=== PATIENT | male | born 1960 | race Caucasian/White ===

== ENCOUNTER 2017-05-17 17:10 | Inpatient (IN) | payer OTHER ==
[~2017-05-17] VITALS: Ht 175.3 cm; Wt 93.0 kg
[2017-05-17 17:46] LABS: ABSOLUTE BASOPHIL COUNT 0 /CUMM (0.0-0.2); ABSOLUTE EOSINOPHIL COUNT 0 /CUMM (0.0-0.7); ABSOLUTE GRANULOCYTE CT 4.1 /CUMM (1.4-6.5); ABSOLUTE LYMPH COUNT 2.5 /CUMM (1.2-3.4); ABSOLUTE MONOCYTE COUNT 0.4 /CUMM (0.10-0.60); BASOPHIL % 0.4 % (0.0-2.0); EOSINOPHIL % 0.5 % (0-5); GRANULOCYTE % 58.4 % (42.2-75.2); HEMATOCRIT 45.4 % (42-52); MEAN CORPUSCULAR HGB CONC 34.4 G/DL (33.0-37.0); MEAN CORPUSCULAR VOLUME 92.8 FL (80.0-94.0); PLATELET COUNT 203 /CUMM (130-400); RBC DISTRIBUTION WIDTH 14.1 % (11.5-14.5); RED BLOOD CELL CT 4.89 /CUMM (4.70-6.10)
--- NOTE | 2017-05-17 21:52 | ED PSYCHIATRIC COMPLAINT ---
History of Present Illness General Chief Complaint: ETOH/Drug Related Complaint Stated Complaint: REQUESTING HIGHWATCH Source: patient Exam Limitations: no limitations Vital Signs & Intake/Output Vital Signs & Intake/Output Vital Signs Date Time Temp Pulse Resp B/P B/P Pulse O2 O2 Flow FiO2 Mean Ox Delivery Rate 05/19 0936 102 132/90 05/19 0800 102 18 132/90 05/19 0651 146/88 05/19 0641 98.4 96 20 150/100 97 Room Air 05/18 2213 98.1 114 18 152/80 98 Room Air 05/18 1999 132/78 05/18 1999 132/78 05/18 1711 97.9 670 54 0855/10 05/18 1711 97.9 109 20 160/100 96 Room Air 05/18 1610 98.0 104 16 149/90 05/18 1610 98.0 104 16 140/90 98 Room Air 05/18 1311 98.1 120 18 138/98 98 Room Air ED Intake and Output 05/19 0000 05/18 1200 Intake Total Output Total Balance Patient 205 lb Weight Weight Reported by Patient Measurement Method Allergies Coded Allergies: Penicillins (HIVES 05/17/17) Reconcile Medications Citalopram Hydrobromide (Citalopram HBr) 20 MG TABLET 1 TAB PO DAILY DEPRESSION (Reported) Lisinopril 40 MG TABLET 1 TAB PO DAILY HIGH BLOOD PRESSURE (Reported) Triage Note: PT HERE FOR HIGHWATCH CLEARANCE STATES HIS BAL WAS TOO HIGH FOR HIM TO STAY THERE. PT STATES HIS LAST DRINK WAS LAST EVENING. PT ADMITS TO DRINKING 1 PINT OF VODKA DAILY. PT DENIES DRUG USE. PT DENIES SI/HI PT Triage Nurses Notes Reviewed? yes HPI: Patient presents for evaluation of alcohol dependence. Patient states that he has been drinking a pint of vodka daily for at least 10 years, off and on. Patient denies history of seizures. He intends to go into alcohol rehabilitation at [facility]. He reported there today but was too intoxicated. He has no specific complaint at this time. (Klarissa RAGLAND,Augie Weeks) Past History Travel History Traveled to [place] past 21 day No Medical History Any Pertinent Medical History? see below for history Cardiovascular: hypertension Psychiatric: alcohol dependence, anxiety Surgical History Surgical History: non-contributory Psychosocial History What is your primary language Sammarinese Tobacco Use: Quit >30 days ago ETOH Use: alcoholic Illicit Drug Use: denies illicit drug use, marijuana (medicinal) Family History Hx Contributory? No (Klarissa RAGLAND,Augie Weeks) Review of Systems Review of Systems Constitutional: Reports: no symptoms. EENTM: Reports: no symptoms. Respiratory: Reports: no symptoms. Cardiovascular: Reports: no symptoms. GI: Reports: no symptoms. Genitourinary: Reports: no symptoms. Musculoskeletal: Reports: no symptoms. Skin: Reports: no symptoms. Neurological/Psychological: Reports: no symptoms. Hematologic/Endocrine: Reports: no symptoms. Immunologic/Allergic: Reports: no symptoms. All Other Systems: Reviewed and Negative (Klarissa RAGLAND,Augie Weeks) Physical Exam Physical Exam General Appearance: see below Neurological/Psychiatric: see below Comments: General: Alert, calm, cooperative Head: Normocephalic, atraumatic Eyes: Normal inspection, no nystagmus, EOMI Ears: Normal inspection Nose: Normal inspection Throat: Moist mucosa Neck: Supple, no goiter Heart: Regular rate and rhythm, no murmurs rubs or gallops Lungs: Clear to auscultation bilaterally with good air entry Abdomen: Soft nontender nondistended, normal bowel sounds Chest: Nontender Extremities: Normal range of motion grossly, mild tremors present, no cyanosis clubbing or edema of the upper extremities Neurologic: cranial nerves II through XII grossly intact, speech clear, gait normal Psychiatric: No apparent delusions or hallucinations, no pressured speech or thought blocking SAD PERSONS Done? patient not suicidal (Klarissa RAGLAND,Augie Weeks) Progress Differential Diagnosis: alcohol withdrawal, alcohol intoxication, electrolyte abnormality, dehydration, psychiatric disorder Plan of Care: Orders Procedure Date/time Status BASIC ELECTROLYTES PLUS BUN&CR 05/19 0500 Complete MISSING MEDICATION FORM 05/19 UNK Active Heart Healthy Diet 05/18 D Active Vital Signs 05/18 175 Active Teach/Educate 05/18 175 Active Pain Treatment and Response 05/18 175 Active Nutritional Intake, Monitor 05/18 175 Active Isolation 05/18 1759 Active Intake & Output 05/18 175 Active Patient Care Conference 05/18 175 Active Activity/Ambulation 05/18 175 Active Pathway - chart 05/18 1357 Active House Staff 05/18 1357 Active Code Status 05/18 1357 Active LACTIC ACID 05/18 1348 Complete Add-on Test (ER Only) 05/18 1333 Active Admit to inpatient 05/18 1332 Active Patient Data 05/18 1327 Active ED Holding Orders 05/18 1309 Active Vital Signs 05/18 1309 Active Code Status 05/18 1309 Complete VTE Mechanical Prophylaxis 05/18 UNK Active Intake & Output 05/17 203 Active THYROID STIMULATING HORMONE 05/17 1740 Complete Current Medications Sig/Chung Start time Last Medication Dose Stop Time Status Admin Lorazepam 1 MG Q12H 05/20 0000 CAN (Ativan) 05/20 1201 Lorazepam 1.5 MG BID 05/19 2200 AC (Ativan) Citalopram 20 MG DAILY 05/19 1000 AC 05/19 Hydrobromide 0936 (Celexa) Enoxaparin Sodium 40 MG DAILY 05/19 1000 AC 05/19 (Lovenox) 0936 Lisinopril 40 MG DAILY 05/19 1000 AC 05/19 (Prinivil) 0936 Lorazepam 0 Q1P PRN 05/18 1700 AC (Ativan) Folic Acid 1 MG DAILY 05/18 1000 AC 05/19 (Folic Acid) 05/20 1001 0936 Multivitamins 1 TAB DAILY 05/18 1000 AC 05/19 (Theragran Vitamins) 0936 Thiamine HCl 100 MG DAILY 05/18 1000 AC 05/19 (Vitamin B1) 05/20 1001 0935 Laboratory Tests 05/19/17 0435: Anion Gap 11, Estimated GFR > 60, BUN/Creatinine Ratio 25.0 05/18/17 1435: Lactic Acid 1.1 05/18/2017 7:17:40 AM Patient presenting with alcohol withdrawal. May required [place] to the hospital versus disposition to high watch patient medically stable. 10:05 AM MUCH IMPROVED AT THIS TIME. HR 109. NO TREMORS. WILL CONTINUE TO MONITOR, WILL LIKLELY GO TO HIGH WATCH. WILL HOLD ATIVAN AT THIS TIME. 12:20 PM PATIENT FEELS WELL, NO CONFUSION. NO ATIVAN SINCE 6:40 AM. STABLE FOR HIGHWATCH. (Marilia RAGLAND,Ngoc) Comments: 05/17/2017 11:27:23 PM patient signed out to Dr. Pradhan at shift waste[facility]materials exchange specialist. (Klarissa RAGLAND,Augie Weeks) Initial ED EKG: SINUS TACHYCARDIA @ 109 BPM (Marilia RAGLAND,Ngoc) Departure Departure Condition: Stable Clinical Impression Primary Impression: Alcohol dependence Qualifiers: Substance use status: uncomplicated Qualified Code: F10.20 - Alcohol dependence, uncomplicated Referrals: Patient Has No Primary Care Dr (PCP/Family) Departure Forms: Customer Survey General Discharge Information (Klarissa RAGLAND,Augie Weeks) Departure Comments 05/18/16, 7am. pt signed out to dr. mendez (Carolynn RAGLAND,Charli Pleitez) Departure Time of Disposition: 1249 Disposition: STILL A PATIENT Admission Note Spoke With: Glenny RAGLAND,Talia Documentation of Exam: Documentation of any treatments & extenuating circumstances including Concerns Regarding Discharge (functional status, medication knowledge or non-compliance, living conditions, etc.) that warrant an admission rather than observation: [ CIWA MONITORING, ATIVAN TAPER, BP MANAGEMENT, CRISIS CONSULTATION, PLACEMENT FOR ALCOHOL REHAB] (Marilia RAGLAND,[facility])
[2017-05-17] MEDS ORDERED: LISINOPRIL40 M1 PO (22:32)
[2017-05-17] MEDS ORDERED: CITALOPRAM HBR20 MG PO (22:32)
[2017-05-18 06:27] VITALS: BP 174/116
--- NOTE | 2017-05-18 13:37 | History & Physical ---
[facility] 05[facility]18[facility] 1336: General Information and HPI MD Statement: I have seen and personally examined VAHID VILLEGAS and documented this H&P. The patient is a 56 year old M who presented with a patient stated chief complaint of [alcohol withdrawal]. Source of Information: patient Exam Limitations: no limitations History of Present Illness: 56-year-old male Presented from [facility] for alcohol withdrawal evaluation. The patient reported drinking almost daily for the past 10 years, his last drink was yesterday. On average he drinks half pints of vodka every day for the past 2 months. The patient reported that he try to detox at home multiple times in the past without any complication. The patient denies any previous alcohol detox related admissions, seizure, hallucinations, or tremors. Patient denies smoking however he reports medical marijuana use intermittently for joints pain control. Allergies/Medications Allergies: Coded Allergies: Penicillins (HIVES 05/17/17) Home Med list Citalopram Hydrobromide (Citalopram HBr) 20 MG TABLET 1 TAB PO DAILY DEPRESSION (Reported) Lisinopril 40 MG TABLET 1 TAB PO DAILY HIGH BLOOD PRESSURE (Reported) Past History Travel History Traveled to [place] past 21 day No Medical History Neurological: ANXIETY Cardiovascular: hypertension Psychiatric: alcohol dependence, anxiety Surgical History Surgical History: non-contributory Past Family/Social History Psychosocial History ETOH Use: alcoholic Illicit Drug Use: denies illicit drug use, marijuana (medicinal) Review of Systems Review of Systems Constitutional: Reports: see HPI. Exam & Diagnostic Data Last 24 Hrs of Vital Signs/I&O Vital Signs Date Time Temp Pulse Resp B/P B/P Pulse O2 O2 Flow FiO2 Mean Ox Delivery Rate 05/18 1610 98.0 104 16 149/90 05/18 1610 98.0 104 16 140/90 98 Room Air 05/18 1311 98.1 120 18 138/98 98 Room Air 05/18 1122 98.0 119 18 131/78 98 Room Air 05/18 0920 113 18 131/79 98 Room Air 05/18 0835 98.9 133 18 157/104 98 Room Air 05/18 0717 130 20 141/102 98 Room Air 05/18 0642 99.9 125 24 174/116 05/18 0642 99.9 125 24 174/116 05/18 0627 99.9 125 24 174/116 05/18 0626 99.9 125 20 174/116 97 Room Air 05/18 0332 97.0 98 20 142/65 99 Room Air 05/18 0116 97.4 100 20 158/90 99 Room Air 05/17 2354 164/82 05/17 2131 97.7 109 16 166/96 97 05/17 1951 97.2 131 16 131/73 96 Room Air 05/17 1734 97.2 113 16 122/81 96 Room Air Intake & Output 05/18 1600 05/18 0800 05/18 0000 Intake Total 300 Output Total Balance 300 Intake, Oral 300 Patient 94.801 kg Weight Weight Reported by Patient Measurement Method Physical Exam General Appearance Alert, Oriented X3, Cooperative, No Acute Distress Skin No Rashes HEENT Atraumatic, PERRLA, EOMI, Mucous Membr. moist/pink Neck No JVD Cardiovascular Regular Rate, Normal S1, Normal S2, No Murmurs, TACHYCARDIA Lungs Clear to Auscultation, Normal Air Movement Abdomen Soft, No Tenderness Neurological Normal Gait, Normal Speech, Strength at 5/5 X4 Ext, Sensation Intact, Cranial Nerves 3-12 NL, Reflexes 2+ Extremities No Clubbing, No Cyanosis, No Edema Last 24 Hrs of Labs/Bonilla: Laboratory Tests 05/18/17 1435: Lactic Acid 1.1 05/17/17 2019: Urine Opiates Screen < 100.00, Methadone Screen 67, Barbiturate Screen < 60, Ur Phencyclidine Scrn < 6.00, Amphetamines Screen < 100, U Benzodiazepines Scrn < 85, Urine Cocaine Screen < 50, Urine Cannabis Screen 79.70 H 05/17/17 1740: Anion Gap 22 H, Estimated GFR > 60, BUN/Creatinine Ratio 28.8 H, Glucose 94, Calcium 9.4, Total Bilirubin 1.5 H, AST 89 H, ALT 66, Alkaline Phosphatase 84, Troponin I < 0.01, Total Protein 7.9, Albumin 4.7, Globulin 3.2, Albumin/ Globulin Ratio 1.5, TSH 1.480, CBC w Diff NO MAN DIFF REQ, RBC 4.89, MCV 92.8, MCH 32.0 H, MCHC 34.4, RDW 14.1, MPV 8.0, Gran % 58.4, Lymphocytes % 35.5, Monocytes % 5.2, Eosinophils % 0.5, Basophils % 0.4, Absolute Granulocytes 4.1, Absolute Lymphocytes 2.5, Absolute Monocytes 0.4, Absolute Eosinophils 0, Absolute Basophils 0, Serum Alcohol 183.0 Assessment/Plan Assessment: 56-year-old male who presented for alcohol detox, while in the ED the patient was found to be anxious with a heart rate of 120s and BP 170s/110S. the patient has no history of alcohol withdrawal-related complication. Patient has a past medical history of hypertension and an anxiety for which he is taking lisinopril and Escitalopram. #Alcohol detox * Admitted to general medicine floor * CIWA scoring system * Ativan IV as per CIWA protocol. * Oral folic acid and thiamine #Hypertension/and anxiety * Continue home medication including lisinopril and Escitalopram. -Regular diet -DVT PPx: Lovenox -Full code As Ranked By This Provider Problem List: 1. Alcohol dependence Qualifiers Substance use status: uncomplicated Qualified Code: F10.20 - Alcohol dependence , uncomplicated Core Measures/Misc (12/19) Acute Coronary Syndrome ACS Diagnosis: No Congestive Heart Failure Congestive Heart Failure Diagnosis No Cerebrovascular Accident CVA/TIA Diagnosis: No VTE (View Protocol) VTE Risk Factors Age>40 No Mechanical VTE Prophylaxis d/t N/A MechProphylax Ordered No VTE Pharm Prophylaxis d/t NA PharmProphylax ordered Sepsis (View protocol) Sepsis Present: No Jreel Romero MD 05/19/17 4739: Attending MD Review Statement Attending Statement Attending MD Statement: examined this patient, discuss w/resident/PA/BUSINESS EDUCATION TEACHER, agreed w/resident/PA/BUSINESS EDUCATION TEACHER, reviewed EMR data (avail)
[2017-05-18 16:10] VITALS: BP 149/90
[2017-05-18 17:11] VITALS: BP 160/100; BP 1660/10
[2017-05-18 20:00] VITALS: BP 132/78
[2017-05-18 22:13] VITALS: BP 152/80
[2017-05-19] VITALS (7 sets, daily range): BP systolic 132–152; BP diastolic 88–102
--- NOTE | 2017-05-19 08:27 | PN- Housestaff ---
See Addendum Subjective Follow-up For: EtOH withdrawal Subjective: no complaints no significant withdrawal symptoms or anxiety feeling well, wants to go to inpatient treatment, blood pressure has been elevated on standing dose ativan Review of Systems Constitutional: Reports: see HPI. Objective Last 24 Hrs of Vital Signs/I&O Vital Signs Date Time Temp Pulse Resp B/P B/P Pulse O2 O2 Flow FiO2 Mean Ox Delivery Rate 05/19 0936 102 132/90 05/19 0800 102 18 132/90 05/19 0651 146/88 05/19 0641 98.4 96 20 150/100 97 Room Air 05/18 2213 98.1 114 18 152/80 98 Room Air 05/18 1999 132/78 05/18 1999 132/78 05/18 1711 97.9 546 10 9451/10 05/18 1711 97.9 109 20 160/100 96 Room Air 05/18 1610 98.0 104 16 149/90 05/18 1610 98.0 104 16 140/90 98 Room Air 05/18 1311 98.1 120 18 138/98 98 Room Air 05/18 1122 98.0 119 18 131/78 98 Room Air Intake & Output 05/19 1600 05/19 0800 05/19 0000 Intake Total Output Total Balance Patient 92.986 kg Weight Weight Reported by Patient Measurement Method Physical Exam General Appearance: Alert, Oriented X3, Cooperative, No Acute Distress Cardiovascular: Regular Rate, Normal S1, Normal S2, No Murmurs Lungs: Clear to Auscultation, Normal Air Movement Abdomen: Normal Bowel Sounds, Soft, No Tenderness, No Masses Extremities: No Clubbing, No Cyanosis, No Edema, Normal Pulses Current Medications: Current Medications Sig/Chung Start time Last Medication Dose Route Stop Time Status Admin Acetaminophen 0 .STK-MED ONE 05/18 1429 DC PO Acetaminophen 975 MG ONCE ONE 05/18 1315 DC 05/18 PO 05/18 1316 1426 Citalopram 20 MG DAILY 05/19 1000 AC 05/19 Hydrobromide PO 0936 Enoxaparin Sodium 40 MG DAILY 05/19 1000 AC 05/19 SC 0936 Folic Acid 1 MG DAILY 05/18 1000 AC 05/19 PO 05/20 1001 0936 Gabapentin 300 MG Q8 05/18 0600 DC 05/18 PO 1304 Lisinopril 40 MG DAILY 05/19 1000 AC 05/19 PO 0936 Lorazepam 1 MG Q12H 05/20 0000 CAN PO 05/20 1201 Lorazepam 1.5 MG BID 05/19 2200 AC PO Lorazepam 1.5 MG Q6 05/19 0600 DC 05/19 PO 05/19 1801 0513 Lorazepam 0 Q1P PRN 05/18 1700 AC IV Lorazepam 2 MG Q6 05/18 0845 DC 05/18 PO 05/19 0001 2312 Lorazepam 2 MG Q2P PRN 05/18 0845 DC IV Lorazepam 1 MG Q2P PRN 05/18 0845 DC IV Multivitamins 1 TAB DAILY 05/18 1000 AC 05/19 PO 0936 Thiamine HCl 100 MG DAILY 05/18 1000 AC 05/19 PO 05/20 1001 0935 Last 24 Hrs of Lab/Bonilla Results Last 24 Hrs of Labs/Mics: Laboratory Tests 05/19/17 0435: Anion Gap 11, Estimated GFR > 60, BUN/Creatinine Ratio 25.0 05/18/17 1435: Lactic Acid 1.1 Assessment/Plan Assessment: 56-year-old male who presented for alcohol detox, while in the ED the patient was found to be anxious with a heart rate of 120s and BP 170s/110S. the patient has no history of alcohol withdrawal-related complication. Patient has a past medical history of hypertension and an anxiety for which he is taking lisinopril and Escitalopram. Alcohol detox: * CIWA scoring 0-11 past 24 hours Decreased standing Ativan from 1.5mg Q6H to BID, 1mg tmrw morning then stop * Ativan IV as per CIWA protocol. * Oral folic acid and thiamine Hypertension: Likely elevated from acute withdrawal Continue lisinopril and monitor blood pressure Anxiety: * Continue Escitalopram. Regular diet DVT ppx: Lovenox 40mg subcutaneous daily Full code Problem List: 1. Alcohol dependence Pain Ratin Pain Location: n/a Pain Goal: Pain 4 or less Pain Plan: prn Tomorrow's Labs & Rationales: none
[2017-05-20 01:48] VITALS: BP 138/104
[2017-05-20 02:00] VITALS: BP 138/104
[2017-05-20 06:47] VITALS: BP 130/96
--- NOTE | 2017-05-20 08:47 | PN- Housestaff ---
Yane RAGLAND,Joe 05/20/17 0847: Subjective Follow-up For: etoh detox anxiety htn tachycardia Subjective: patient is not complaining of significant withdrawal symptoms [facility] on ativan taper Review of Systems Constitutional: Reports: see HPI. Objective Last 24 Hrs of Vital Signs/I&O Vital Signs Date Time Temp Pulse Resp B/P B/P Pulse O2 O2 Flow FiO2 Mean Ox Delivery Rate 05/20 1020 114 142/90 05/20 1000 97.8 102 20 140/100 96 Room Air 05/20 0647 98.0 110 22 130/96 97 Room Air 05/20 0200 102 138/104 05/20 0148 97.6 102 22 138/104 97 Room Air 05/19 2205 98.0 98 20 142/102 98 Room Air 05/19 1600 104 140/92 05/19 1600 105 18 140/92 05/19 1542 118 142/98 05/19 1413 97.8 108 20 152/100 97 Room Air Intake & Output 05/20 1600 05/20 0800 05/20 0000 Intake Total 480 250 Output Total Balance 480 250 Intake, IV 10 Intake, Oral 480 240 Number 0 0 Bowel Movements Physical Exam General Appearance: Alert, Oriented X3, Cooperative, No Acute Distress Cardiovascular: Regular Rate, Normal S1, Normal S2, No Murmurs Lungs: Clear to Auscultation, Normal Air Movement Abdomen: Normal Bowel Sounds, Soft, No Tenderness, No Masses Extremities: No Clubbing, No Cyanosis, No Edema, Normal Pulses Current Medications: Current Medications Sig/Chung Start time Last Medication Dose Route Stop Time Status Admin Citalopram 20 MG DAILY 05/19 1000 AC 05/20 Hydrobromide PO 1020 Enoxaparin Sodium 40 MG DAILY 05/19 1000 AC 05/20 SC 1020 Folic Acid 1 MG DAILY 05/18 1000 DC 05/20 PO 05/20 1001 1020 Lisinopril 40 MG DAILY 05/19 1000 AC 05/20 PO 1020 Lorazepam 1 MG BID 05/20 1000 AC 05/20 PO 1020 Lorazepam 1.5 MG BID 05/19 2200 DC PO Lorazepam 1 MG ONCE ONE 05/19 1600 DC IV 05/19 1601 Lorazepam 1.5 MG Q8 05/19 1550 DC 05/20 PO 0559 Lorazepam 1 MG ONCE ONE 05/19 1430 DC 05/19 IV 05/19 1431 1447 Lorazepam 0 Q1P PRN 05/18 1700 AC IV Magnesium Oxide 400 MG ONE ONE 05/19 1914 DC 05/19 PO 05/19 Multivitamins 1 TAB DAILY 05/18 1000 AC 05/19 PO 0936 Potassium Chloride 40 MEQ ONCE ONE 05/19 1914 DC 05/19 PO 05/19 Thiamine HCl 100 MG DAILY 05/18 1000 DC 05/19 PO 05/20 1001 0935 Last 24 Hrs of Lab/Bonilla Results Last 24 Hrs of Labs/Mics: Laboratory Tests 05/20/17 0633: Anion Gap 11, Estimated GFR > 60, BUN/Creatinine Ratio 24.3, Phosphorus 2.5, Magnesium 2.0 Assessment/Plan Assessment: 56 year old male with PMH significant for anxiety and HTN presented with presented for alcohol detox with tachycardia and hypertension on arrival. Alcohol detox: Remains mildly tachycardic and hypertensive CIWA score 0 Decreased standing Ativan from 1.5mg to 1mg BID Ativan IV as per CIWA protocol. Oral folic acid and thiamine Hypertension: Likely elevated from acute withdrawal Continue lisinopril, elevated diastolic pressures Consider adding metoprolol for tachycardia/HTN if persisted abnormal vital signs as EtOH withdrawal wanes Anxiety: Continue Escitalopram Regular diet DVT ppx: Lovenox 40mg subcutaneous daily Full code Problem List: 1. Alcohol dependence Pain Ratin Pain Location: n/a Pain Goal: Pain 4 or less Pain Plan: prn Tomorrow's Labs & Rationales: none Jerel Romero MD 05/20/17 1124: Attending MD Review Statement Attending Statement Attending MD Statement: examined this patient, discuss w/resident/PA/HYDROELECTRIC PLANT OPERATOR, agreed w/resident/PA/HYDROELECTRIC PLANT OPERATOR, reviewed EMR data (avail) Attending Assessment/Plan: Still hypertensive, tachycardic, showing signs of withdrawal, will continue Ativan taper until tomorrow.
[2017-05-20 10:00] VITALS: BP 140/100
[2017-05-20 15:18] VITALS: BP 130/90
--- NOTE | 2017-05-20 17:07 | Patient Discharge Instructions ---
Discharge Instructions General Discharge Information You were seen/treated for: alcohol withdrawal Acute Coronary Syndrome Inclusion Criteria At DC or during hospital stay patient has or had the following: ACS DIAGNOSIS No Discharge Core Measures Meds if any: Prescribed or Continued at Discharge Meds if any: NOT Prescribed or Continued at Discharge Congestive Heart Failure Inclusion Criteria At DC or during hospital stay patient has or had the following: CHF DIAGNOSIS No Discharge Core Measures Meds if any: Prescribed or Continued at Discharge Meds if any: NOT Prescribed or Continued at Discharge Cerebrovascular accident Inclusion Criteria At DC or during hospital stay patient has or had the following: CVA/TIA Diagnosis No Discharge Core Measures Meds if any: Prescribed or Continued at Discharge Meds if any: NOT Prescribed or Continued at Discharge Venous thromboembolism Inclusion Criteria VTE Diagnosis No VTE Type NONE VTE Confirmed by (Test) NONE Discharge Core Measures - Per Current guidelines, there needs to be overlap - treatment for the first 5 days of Warfarin therapy. - If discharged on Warfarin prior to 5 days of - overlap therapy, the patient will need to be - assessed for post discharge needs including - *Post discharge parental anticoagulation - *Warfarin and/or parental anticoagulation education - *Follow up date to check INR post discharge At least 5 days overlap therapy as Inpatient No Meds if any: Prescribed or Continued at Discharge Note: Overlap Therapy is Warfarin and Anticoagulant Meds if any: NOT Prescribed or Continued at Discharge
[2017-05-20 21:49] VITALS: BP 144/84
[2017-05-21 06:40] VITALS: BP 138/68
--- NOTE | 2017-05-21 09:28 | PN- Housestaff ---
[place],Junior 05/21/17 0927: Subjective Follow-up For: Alcohol detox Subjective: Patient is seen and examined at bedside. He does not endorse any acute complaints including tremors, hallucination, increased anxiety, seizure-like activity. CIWA scores have been zero for the past few days. No acute overnight event reported by nursing staff. Review of Systems Constitutional: Reports: no symptoms. Objective Last 24 Hrs of Vital Signs/I&O Vital Signs Date Time Temp Pulse Resp B/P B/P Pulse O2 O2 Flow FiO2 Mean Ox Delivery Rate 05/21 1046 106 142/98 05/21 0640 97.6 75 18 138/68 96 Room Air 05/20 2149 97.4 82 20 144/84 96 Room Air 05/20 1518 97.7 97 20 130/90 97 Room Air Intake & Output 05/21 1600 05/21 0800 05/21 0000 Intake Total 450 650 Output Total Balance 450 650 Intake, Oral 450 650 Physical Exam General Appearance: Alert, Oriented X3, Cooperative Cardiovascular: Regular Rate, Normal S1, Normal S2 Lungs: Clear to Auscultation, Normal Air Movement Abdomen: Normal Bowel Sounds, Soft, No Tenderness Neurological: Normal Gait, Normal Speech, Strength at 5/5 X4 Ext, Sensation Intact Extremities: No Clubbing, No Cyanosis, No Edema, Normal Pulses Current Medications: Current Medications Sig/Chung Start time Last Medication Dose Route Stop Time Status Admin Citalopram 20 MG DAILY 05/19 1000 DCD 05/21 Hydrobromide PO 1042 Enoxaparin Sodium 40 MG DAILY 05/19 1000 DCD 05/21 SC 1046 Lisinopril 40 MG DAILY 05/19 1000 DCD 05/21 PO 1046 Lorazepam 1 MG BID 05/20 1000 DCD 05/21 PO 1041 Lorazepam 0 Q1P PRN 05/18 1700 DCD IV Metoprolol Tartrate 25 MG ONCE ONE 05/21 1415 DC 05/21 PO 05/21 1416 1550 Multivitamins 1 TAB DAILY 05/18 1000 DCD 05/21 PO 1122 Last 24 Hrs of Lab/[place] Results Last 24 Hrs of Labs/Mics: Laboratory Tests 05/21/17 0613: Anion Gap 13, Estimated GFR > 60, BUN/Creatinine Ratio 21.4 Assessment/Plan Assessment: 56 year old male with PMH significant for anxiety and HTN presented with presented for alcohol detox with tachycardia and hypertension on arrival. Alcohol detox: VSS stable. CIWA score 0 for the past 3 days continue Tivan taper, will give 1mg once today then stop. Ativan IV as per CIAK protocol. Oral folic acid and thiamine Hypertension: Improving. Was probably exacerbated by withdrawal. Continue lisinopril, elevated diastolic pressures O/n HR less than 100, tachycardia seem to have resolved. Was probably exacerbated by withdrawal. Will consider adding metroprol low dose. Anxiety: Continue Escitalopram Disposition: Medically stable, arraingement for [facility] re[facility] have been made. Will cordinate with case management. Problem List: 1. Alcohol dependence Pain Ratin Pain Location: none Pain Goal: Remain pain free Pain Plan: per pathway Tomorrow's Labs & Rationales: nine-discharge Jerel Romero MD 05/21/17 1629: Attending MD Review Statement Attending Statement Attending MD Statement: examined this patient, discuss w/resident/PA/WHEELABRATOR OPERATOR, agreed w/resident/PA/WHEELABRATOR OPERATOR, reviewed EMR data (avail) Attending Assessment/Plan: Nno further signs of withdrawal. Will start Metoprolol 25mg BID for tachycardia and HTN, and discharge to [facility] when bed is available.
--- NOTE | 2017-05-21 10:15 | Discharge Summary ---
Visit Information Visit Dates Admission Date: 05/18/17 Discharge Date: 05/21/17 Hospital Course Course Attending Physician: Jerel Romero MD Primary Care Physician: Patient Has No Primary Care Dr Hospital Course: 56-year-old male who presented for alcohol detox, while in the ED the patient was found to be anxious with a heart rate of 120s and BP 170s/110S. the patient has no history of alcohol withdrawal-related complication. Patient has a past medical history of hypertension and an anxiety for which he is taking lisinopril and Escitalopram. He was prescribed ativan for anxiety and tachycardia in the past. The patient was admitted for Alcohol detox. The patient was admitted to general medicine floor, placed on CIWA scoring system, Ativan IV as per CIWA protocol, PO Ativan taper, and supplement with folic acid and thiamine. For Hypertensions and anxiety We continue home medications including lisinopril and Escitalopram. The plan for the patient is to placed in high watch post DC. Allergies: Coded Allergies: Penicillins (HIVES 05/17/17) Disposition Summary Disposition Principal Diagnosis: Alcohol detox and anxiety Additional Diagnosis: Hypertensions Discharge Disposition: home or self care Discharge Instructions General Discharge Information Code Status: Full Code Patient's Diet: regular diet Patient's Activity: as tolerated Follow-Up Instructions/Appts: PCP post DC within one week Medications at Discharge Discharge Medications: Continue taking these medications: Lisinopril (Lisinopril) 40 MG TABLET 1 Tablet ORAL DAILY Qty = 30 Comments: Last Taken: 05/21/17 Time: 1030 Citalopram Hydrobromide (Citalopram HBr) 20 MG TABLET 1 Tablet ORAL DAILY Qty = 45 Comments: Last Taken: 05/21/17 Time: 1030 Start taking the following new medications: Metoprolol Tartrate (Metoprolol Tartrate) 25 MG TABLET 1 Tablet ORAL TWICE DAILY Qty = 60 No Refills Comments: Last Taken: 05/21/17 Time: 1515 Copies To: Jerel Romero MD
[2017-05-21 11:37] VITALS: BP 140/100
[2017-05-21] MEDS ORDERED: METOPROLOL TART25 M1 PO (14:03)
[2017-05-21 14:07] VITALS: BP 125/90
[2017-05-21 15:50] VITALS: BP 132/90
== END 2017-05-21 16:50 | DRG 897 ==
LOC: ERH 17:10 → ERHI 05-18 13:32 → 2NB 05-18 13:32 → ERHI 05-18 13:57 → ENRESERV 05-18 14:52 → ENTRNSPT 05-18 16:40 → EDTRNSPTSTS 05-18 16:51 → 2NB 05-18 17:06 → CMPTRNSPT 05-18 17:18 → ENPENDDIS 05-21 13:50 → 2NB 05-21 16:50
PROVIDERS: Physician Assistant
DX: F10.239 Alcohol dependence with withdrawal, unspecified (principal); F12.20 Cannabis dependence, uncomplicated; M25.50 Pain in unspecified joint; Z88.0 Allergy status to penicillin; F32.9 Major depressive disorder, single episode, unspecified; F41.9 Anxiety disorder, unspecified; I10 Essential (primary) hypertension; R00.0 Tachycardia, unspecified
CPT/HCPCS: 2NBSP; 36415; 36592; 80307; 82436; 93005; 93010; G0480; J1650; J3490